=== PATIENT | male | born 1985 | race Caucasian/White ===

== ENCOUNTER → 2016-12-24 11:36 | Emergency (ER) | payer SELFPAY ==
[~2016-12-24 11:36] MED LIST: Ondansetron ODT TAB* 4 MG SL ONE
--- NOTE | 2016-12-24 12:59 | RAD ---
HISTORY: Left-sided rib pain, trauma COMPARISONS: None VIEWS: 8, Frontal view of the chest with frontal and oblique views of the left hemithorax FINDINGS: There is no displaced rib fracture or pneumothorax. The visualized lungs are clear. IMPRESSION: NO DISPLACED RIB FRACTURE OR PNEUMOTHORAX
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
[2016-12-24 13:32] VITALS: BP 128/71
== END | disposition home or self-care (01) ==
LOC: ED 11:36
DX: Z04.1 Encounter for examination and observation following transport accident (principal); M54.2 Cervicalgia; M54.9 Dorsalgia, unspecified
CPT/HCPCS: 99282; A9270-GY

== ENCOUNTER 2019-03-26 06:38 | Emergency (ER) | payer OTHER ==
[2019-03-26] MEDS ORDERED: LORazepam TAB(*) 1 MG PO ONE (06:47)
[2019-03-26 07:11] LABS: ABS Basophils 0.1 10^3/ul (0-0.2); ABS Eosinophils 0.1 10^3/ul (0-0.6); ABS Monocytes 0.5 10^3/ul (0-0.8); ABS Neutrophils 4.2 10^3/ul (1.5-7.7); Eosinophil % 1.9 %; Hematocrit 43 % (42-52); Hemoglobin 15.1 g/dL (14.0-18.0); Lymphocyte % 28.5 %; Mean Corpuscular HGB Conc 35 g/dL (31-36); Mean Corpuscular Hemoglobin 30 pg (27-31); Mean Corpuscular Volume 86 fL (80-94); Mean Platelet Volume 8.5 fL (7.4-10.4); Nucleated Red Blood Cells % 0.3; Platelet Count 288 10^3/uL (150-450); Red Blood Count 5.02 10^6 /uL (4.18-5.48); Red Cell Distribution Width 13 % (10-15); White Blood Count 6.8 10^3/uL (3.5-10.8)
[2019-03-26 07:27] LABS: Albumin 4.1 g/dL (3.2-5.2); Albumin/Globulin Ratio 1.2 (1-3); BUN/Creatinine Ratio 15.2 (8-20); Calcium 9.1 mg/dL (8.6-10.3); EGFR African American 91.9 (>60); Globulin 3.3 g/dL (2-4); Potassium 3.8 mmol/L (3.5-5.0); Total Bilirubin 0.5 mg/dL (0.2-1.0); Total Protein 7.4 g/dL (6.4-8.9)
[2019-03-26 07:50] VITALS: BP 135/86
--- NOTE | 2019-03-26 08:08 | ED ---
HPI Chest Pain - HPI Summary HPI Summary: Patient is a 33-year-old male with no past significant medical history presenting to the ED with "crushing" chest pain which began at 6am. Per EMS, he had chest pain, followed by him hyperventilating and not being able to catch his breath. He was able to explain to the EMS that he has been very stressed at work and "cannot go back" and also stating "they don't care." No cardiac history. No family cardiac hx. Denies smoking hx. States he is unable to stand d/t the chest pain and tingling all over. While in the ED, he continues to hyperventilate with respirations 30+ and continues to cry about his job and stating "can i go back to work now?" He does not allow provider to ask questions and does not stop talking during the examination. - History of Current Complaint Chief Complaint: EDChestPainROMI Time Seen by Provider: 03/26/19 06:46 Hx Obtained From: Patient, EMS Onset/Duration: Started Hours Ago Timing: Constant Initial Severity: Severe Current Severity: Severe Pain Intensity: 0 Pain Scale Used: 0-10 Numeric Chest Pain Location: Mid Sternal Chest Pain Radiates: Yes Chest Pain Radiates To:: Arm - right arm Character: Dull/Aching Associated Signs and Symptoms: Positive: Anxiety, Recent Stress, Shortness of Breath - Allergy/Home Medications Allergies/Adverse Reactions: Allergies Allergy/AdvReac Type Severity Reaction Status Date / Time No Known Allergies Allergy Verified 03/26/19 07:06 PMH/Surg Hx/FS Hx/Imm Hx Previously Healthy: Yes - Immunization History Hx Pertussis Vaccination: No Immunizations Up to Date: Yes Infectious Disease History: No Infectious Disease History: Denies: Traveled Outside the [place] in Last 30 Days - Social History Occupation: Employed Full-time Lives: With Family Alcohol Use: None Hx Substance Use: No Substance Use Type: Reports: None Hx Tobacco Use: No Smoking Status (MU): Never Smoked Tobacco Review of Systems Negative: Fever, Chills, Fatigue, Skin Diaphoresis Positive: Chest Pain. Negative: Palpitations Negative: Shortness Of Breath, Cough Genitourinary: Negative Positive: no symptoms reported, see HPI Negative: Arthralgia, Myalgia Skin: Negative Neurological: Negative Positive: Anxious All Other Systems Reviewed And Are Negative: Yes Physical Exam Triage Information Reviewed: Yes Vital Signs On Initial Exam: Initial Vitals Temp Pulse Resp BP Pulse Ox 97.9 F 82 18 148/94 100 03/26/19 06:42 03/26/19 06:42 03/26/19 06:42 03/26/19 06:42 03/26/19 06:42 Appearance: Positive: Ill-Appearing - appears anxious Skin: Positive: Warm, Skin Color Reflects Adequate Perfusion Head/Face: Positive: Normal Head/Face Inspection Eyes: Positive: EOMI, YOUSIF, Conjunctiva Clear Neck: Positive: Supple, No Lymphadenopathy Respiratory/Lung Sounds: Positive: Clear to Auscultation, Breath Sounds Present Cardiovascular: Positive: RRR, Pulses are Symmetrical in both Upper and Lower Extremities Musculoskeletal: Positive: Normal, Strength/ROM Intact Neurological: Positive: Speech Normal Psychiatric: Positive: Anxious, Patient Uncooperative for Exam - 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 not answer provider 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 - continues to be tangential and talking about work, not answering questions regarding chest pain AVPU Assessment: Alert Procedures - Sedation Patient Received Moderate/Deep Sedation with Procedure: No Diagnostics - Vital Signs Vital Signs Temp Pulse Resp BP Pulse Ox 03/26/19 07:49 98.6 F 64 15 135/86 100 03/26/19 07:00 69 14 96 03/26/19 06:53 80 26 109/88 100 03/26/19 06:51 79 26 100 03/26/19 06:42 97.9 F 82 18 148/94 100 - Laboratory Lab Results: Lab Results 03/26/19 03/26/19 Range/Units 06:58 06:58 WBC 6.8 (3.5-10.8) 10^3/uL RBC 5.02 (4.18-5.48) 10^6 /uL Hgb 15.1 (14.0-18.0) g/dL Hct 43 (42-52) % MCV 86 (80-94) fL MCH 30 (27-31) pg MCHC 35 (31-36) g/dL RDW 13 (10-15) % Plt Count 288 (150-450) 10^3/uL MPV 8.5 (7.4-10.4) fL Neut % (Auto) 60.7 % Lymph % (Auto) 28.5 % Bibb % (Auto) 7.6 % Eos % (Auto) 1.9 % Baso % (Auto) 1.3 % Absolute Neuts (auto) 4.2 (1.5-7.7) 10^3/ul Absolute Lymphs (auto) 2.0 (1.0-4.8) 10^3/ul Absolute Monos (auto) 0.5 (0-0.8) 10^3/ul Absolute Eos (auto) 0.1 (0-0.6) 10^3/ul Absolute Basos (auto) 0.1 (0-0.2) 10^3/ul Absolute Nucleated RBC 0.0 10^3/ul Nucleated RBC % 0.3 Sodium 139 (135-145) mmol/L Potassium 3.8 (3.5-5.0) mmol/L Chloride 107 (101-111) mmol/L Carbon Dioxide 25 (22-32) mmol/L Anion Gap 7 (2-11) mmol/L BUN 17 (6-24) mg/dL Creatinine 1.12 (0.67-1.17) mg/dL Est GFR ( Amer) 91.9 (>60) Est GFR (Non-Af Amer) 76.0 (>60) BUN/Creatinine Ratio 15.2 (8-20) Glucose 101 H (70-100) mg/dL Calcium 9.1 (8.6-10.3) mg/dL Total Bilirubin 0.50 (0.2-1.0) mg/dL AST 21 (13-39) U/L ALT 33 (7-52) U/L Alkaline Phosphatase 66 (34-104) U/L Troponin I 0.00 (<0.04) ng/mL Total Protein 7.4 (6.4-8.9) g/dL Albumin 4.1 (3.2-5.2) g/dL Globulin 3.3 (2-4) g/dL Albumin/Globulin Ratio 1.2 (1-3) Result Diagrams: 03/26/19 06:58 03/26/19 06:58 Lab Statement: Any lab studies that have been ordered have been reviewed, and results considered in the medical decision making process. Chest Pain Course/Dx - Course Course Of Treatment: History is limited as patient refuses to answer any questions, continuing to be concerned about his job stating he cannot go back and will need a doctors note. Difficult to obtain an EKG, labs and any HPI. Labs EKG is NSR. Labs obtained including a trop 0.00. Discussed with patient this is anxiety attack. He continues to state he needs to return to work, continues to cry. When stated he is able to return to work, he becomes angry and states he cannot with his anxiety and will need a drs note. While in the ED , patient refuses ativan because he would like to return to work. He is not give a drs note and advised he is able to return to his normal activities. Patient appears upset. - Chest Pain Differential Diagnosis/HQI/PQRI: Angina, Other: - generalized anxiety disorder, hyperventilation, malingering - Diagnoses Provider Diagnoses: Anxiety attack Discharge ED - Sign-Out/Discharge Documenting (check all that apply): Patient Departure - Discharge Plan Condition: Stable Disposition: HOME Patient Education Materials: Anxiety (ED) Referrals: No Primary Care Phys,NOPCP [Primary Care Provider] - Additional Instructions: You were seen here for anxiety and chest pain related to anxiety You are able to return to your normal activities - Billing Disposition and Condition Condition: STABLE Disposition: Home
== END 2019-03-26 07:49 | disposition home or self-care (01) ==
LOC: ED 06:38
DX: F41.9 Anxiety disorder, unspecified (principal); R07.89 Other chest pain
CPT/HCPCS: 36415; 80053; 84484; 85025; 93005; 99282; A9270-GY